=== PATIENT | female | born 1990 | race Caucasian/White ===

== ENCOUNTER 2019-05-04 11:23 | Emergency (ER) | payer OTHER ==
[~2019-05-04] VITALS: Ht 160 cm; Wt 77.1 kg
[2019-05-04] MEDS ORDERED: PROZAC20 MG PO (11:39)
[2019-05-04] MEDS ORDERED: AUGMENTIN 875-1 EACH PO (12:33)
[2019-05-04] MEDS ORDERED: IBUPROFEN 800800 M1 PO (12:33)
[2019-05-04] MEDS ORDERED: NORCO 5-325 TA1 EAC1 PO (12:33)
[2019-05-04] MEDS ORDERED: PHENERGAN 25 MG25 M1 PO (12:33)
[2019-05-04 13:00] VITALS: BP 122/76
== END 2019-05-04 13:00 | disposition home or self-care (01) ==
LOC: M.ERS 11:23
DX: J32.9 Chronic sinusitis, unspecified (principal); Z98.890 Other specified postprocedural states